=== PATIENT | female | born 1980 | race Caucasian/White ===

== ENCOUNTER → 2019-07-19 | Outpatient (CLI) | payer OTHER, SELFPAY ==
[2019-07-21 16:07] LABS: Clam 0.16 kU/L (Class 0/I); Codfish <0.10 kU/L (Class 0); Corn 0.34 kU/L (Class I); Egg, White <0.10 kU/L (Class 0); Milk (Cow) <0.10 kU/L (Class 0); Peanut 0.43 kU/L (Class I); SCALLOP 0.28 kU/L (Class 0/I); Shrimp <0.10 kU/L (Class 0); Soybean 0.29 kU/L (Class 0/I); Walnut, (Food) 0.35 kU/L (Class I); Wheat 0.36 kU/L (Class I)
[2019-07-21 20:07] LABS: Alternaria tenuis <0.10 kU/L (Class 0); Ash, White 0.39 kU/L (Class I); Aspergillus fumigatus <0.10 kU/L (Class 0); Bermuda Grass 0.37 kU/L (Class I); Black Walnut 0.37 kU/L (Class I); Cat Hair / Dander,Stand <0.10 kU/L (Class 0); Cedar, Mountain 0.32 kU/L (Class I); Cladosporium herbarum <0.10 kU/L (Class 0); Cockroach, American 0.28 kU/L (Class 0/I); Cottonwood 0.38 kU/L (Class I); D farinae Mite <0.10 kU/L (Class 0); D pteronyssinus <0.10 kU/L (Class 0); Dog Epithelia <0.10 kU/L (Class 0); Elm, American White 0.37 kU/L (Class I); Immunoglobulin E 23 IU/mL (6-495); Maple/Box Elder 0.36 kU/L (Class I); Mulberry, White 0.28 kU/L (Class 0/I); Oak, White 0.37 kU/L (Class I); Pecan 0.35 kU/L (Class I); Penicillium Notatum <0.10 kU/L (Class 0); Pigweed, Rough 0.29 kU/L (Class 0/I); Ragweed, Short/Common 0.37 kU/L (Class I); Sheep Sorrel 0.35 kU/L (Class I); Sycamore, American 0.37 kU/L (Class I); Timothy Grass 0.79 kU/L (Class II)
[2019-07-23 13:05] LABS: SESAME SEED 0.43 kU/L (Class I)
[2019-07-23 13:06] LABS: Mouse Urine <0.10 kU/L (Class 0)
== END | disposition home or self-care (01) ==
LOC: LAB 09:47
PROVIDERS: Referring Provider Otolaryngology; Visit Provider Otolaryngology
DX: T78.40XA Allergy, unspecified, initial encounter (principal)
CPT/HCPCS: 36415; 82785; 86003

== ENCOUNTER 2020-02-21 10:58 | Emergency (ER) | payer OTHER, SELFPAY ==
[2020-02-21 11:00] VITALS: BP 151/97; PULSE 109; RESP 16; TEMP 36.8; O2SAT 98; BMI 23.8
--- NOTE | 2020-02-21 11:26 | RAD_ITS ---
STUDY: X-RAY - RIGHT WRIST REASON FOR EXAM: Female, 39 years old. INJURY, FALL, WRIST PAIN TECHNIQUE: 3 view(s) of the wrist were obtained. COMPARISON: None. FINDINGS: Normal visualized distal radius and ulna. Normal radiocarpal articulation. Normal distal radioulnar articulation. Normal carpal bones. Normal carpal articulations. Normal carpometacarpal articulation of the thumb. Normal second through fifth carpometacarpal articulations. Normal visualized metacarpal bones. The soft tissue structures are unremarkable. RAD/Wrist min 3 Views IMPRESSION: Normal x-ray examination of the wrist. Electronically Signed: Isaak Estrada, at 12:17 EDT , Service support ,
--- NOTE | 2020-02-21 11:26 | ED.VISSUMM ---
- ER Visit Summary Date of Service: 02/21/20 Chief Complaint: Fall History of Present Illness: The patient is a 39 F who presents after a fall that occurred today. Patient states she was walking her dog when another dog came up and the dog started fighting. Patient states her dog's leash got wrapped around her leg and caused her to trip and fall. Patient states she landed on her right wrist. Patient describes her pain as aching. Patient states her pain is worse with any movement. Patient denies any paresthesias or weakness. Patient denies any head injury or loss of consciousness. Patient denies any other injuries. Physical Examination: Vital signs are stable. Patient is afebrile. Patient is in no acute distress. Musculoskeletal exam reveals tenderness over the right distal radius. There is no tenderness of the anatomic snuffbox. There is no edema or ecchymosis. There is no obvious deformity noted. Range of motion was slightly limited in all motions of the right wrist secondary to pain. There is no tenderness over the elbow. Sensation was intact to light touch in the radial, median, and ulnar areas. Strength is 5/5 in the radial, median, and ulnar areas. Radial pulses are equal bilaterally. Test Results: X-rays of the right wrist were obtained. There is no acute fracture. This was interpreted by the radiologist and myself. Emergency Department Course and Treatment: Patient was instructed to ice and elevate the right wrist. Patient was given a cock-up wrist splint. Patient was instructed to take Tylenol or ibuprofen as needed for pain. Patient was instructed to follow-up with her primary care physician in 5 to 7 days. Patient understood and was agreeable with the plan. All questions were answered. Disposition: Discharge home Impression: Right wrist sprain This note was generated with [employer] dictation software. It may contain incorrect words, spelling, and punctuation that were not noted in review of the chart prior to signing ED Disposition - Plan for ED Patient: Disposition: Home or Assisted Living Diagnosis: Right wrist sprain Instructions: ED Sprain Wrist Referrals: Care Physician,No Primary [Primary Care Provider] - Scott De Luna MD [NON-STAFF] - 1-2 Weeks
[2020-02-21 14:12] VITALS: BP 124/79; PULSE 62; RESP 15; O2SAT 99
== END 2020-02-21 14:13 | disposition home or self-care (01) ==
PROVIDERS: Emergency Provider Emergency Medicine
DX: S63.501A Unspecified sprain of right wrist, initial encounter (principal); W01.0XXA Fall on same level from slipping, tripping and stumbling without subsequent striking against object, initial encounter; Y93.K1 Activity, walking an animal; Y92.9 Unspecified place or not applicable
CPT/HCPCS: 73110; 99283

== ENCOUNTER → 2020-12-10 13:34 | Outpatient (CLI) | payer OTHER, SELFPAY ==
--- NOTE | 2020-12-10 14:39 | NEURO ---
NCS and/or EMG Patient Report Ordering Doctor: Jose Yu DATE OF SERVICE: 12/10/20 Estefania Mack presents for electrodiagnostic testing of the left upper limb. She reports pain in the left hand and wrist for the past several months. Electrodiagnostic findings: Left median motor nerve demonstrates normal distal latency, amplitude and conduction velocity. Normal left ulnar motor response. Normal median ulnar F waves. Sensory responses are within normal limits. On needle EMG, all muscles tested in the left upper limb showed no evidence of denervation with normal motor unit action potentials. Electrodiagnostic impression: This is a normal electrodiagnostic study of the left upper limb. There is no electrodiagnostic evidence for peripheral neuropathy, including carpal tunnel or cubital tunnel syndrome
== END ==
PROVIDERS: Referring Provider Orthopaedic Surgery; Visit Provider Orthopaedic Surgery
DX: G56.02 Carpal tunnel syndrome, left upper limb (principal); M67.432 Ganglion, left wrist
CPT/HCPCS: 95886; 95910